=== PATIENT | female | born 1945 | race Caucasian/White ===

== ENCOUNTER 2023-12-08 09:39 | Day surgery (SDC) | payer OTHER, SELFPAY ==
[2023-12-08] VITALS (18 sets, daily range): BP systolic 76–129; BP diastolic 13–74; BMI 19.8
[2023-12-08] MEDS: NSS 145 ML IV (10:18)
[2023-12-08 11:44] LABS: ACT-LR - POC 258 Seconds (116-155)
[2023-12-08 11:52] LABS: ACT-LR - POC 332 Seconds (116-155)
--- NOTE | 2023-12-08 12:36 | ITS.CL.CATH ---
Addendum entered and electronically signed by Domenico Guerrero MD 12/08/23 16:45:
THIS REPORT SHOULD BE DELETED. PLEASE SEE report dictated later on same day
Original Note:
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
Cardiac Catheterization
Procedure Report:
CARDIAC CATHETERIZATION REPORT
Date of Procedure: 12/08/2023
Referring: Ryan Perla MD
Indication: Angina with abnormal stress test
HEMODYNAMIC DATA
AO: 126/68
LV: 126/12
LEFT VENTRICULOGRAPHY: Normal left-ventricular wall motion with EF 58%
CORONARY ANGIOGRAPHY
Dominance: Right
Left Main: Normal
LAD: Mild calcification with mild luminal irregularities throughout the LAD system. The medium sized second diagonal branch has very focal 40% mid stenosis
Circumflex: The circumflex has mild luminal irregularities. OM1 is small. OM 2 is large and occluded at its origin. This vessel fills retrograde via left to left collaterals. The circumflex terminates in the large OM 3.
RCA: Dominant vessel with 80% mid stenosis. The PDA is free of disease. There is a 50% stenosis in the AV groove branch proximal to the first of 2 moderate-sized right posterolateral branches which have mild luminal disease.
Angioplasty: At the conclusion the diagnostic study we proceeded with PCI to treat the 80% mid RCA lesion. A J R4 guide catheter was used. Heparin was used for anticoagulation. Plavix 600 mg was administered at the procedure conclusion. A BMW
wire was passed into the distal RCA. Angioplasty with a 2.0 x 15 trek balloon to 12 valarie was accomplished. A 3.25 x 18 Xience jason point NISHANT was advanced to the target location where was deployed at 15 valarie. We then postdilated the stent with a 3.25
x 15 NC trek balloon to maximum 17 valarie. A guide liner was necessary to get the postdilatation balloon into the stented segment. The final angiographic result was outstanding. There were no procedural complications.
Closure Device: None-the procedure was performed via the right radial artery.
Radiation (mGy): 274
DAP (cm2.Gy): 20.8
Fluoroscopy time: 10.8 minutes
CONCLUSIONS
1: Normal left ventricular function with EF 58%
2: Multivessel CAD as described
3. Successful stenting of 80% mid RCA stenosis using 3.25 x 18 Xience NISHANT with outstanding result
4. Recommend dual antiplatelet therapy for 6-12 months and continued aggressive risk factor modification efforts
Copy to: Ryan Perla MD, Don Avila, DO
Domneico Guerrero MD, FACC, [facility]
--- NOTE | 2023-12-08 13:41 | ITS.CL.CATH ---
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
Cardiac Catheterization
Procedure Report:
CARDIAC CATHETERIZATION AND ANGIOPLASTY REPORT
Date of Procedure: 12/08/2023
Referring: Ryan Perla MD
Indication: Angina with abnormal stress test
HEMODYNAMIC DATA
AO: 126/68
LV: 126/12
LEFT VENTRICULOGRAPHY: Normal left-ventricular wall motion with EF 58%
CORONARY ANGIOGRAPHY
Dominance: Right
Left Main: Normal
LAD: Mild calcification with mild luminal irregularities throughout the LAD system. The medium sized second diagonal branch has very focal 40% mid stenosis
Circumflex: The circumflex has mild luminal irregularities. OM1 is small. OM 2 is large and occluded at its origin. This vessel fills retrograde via left to left collaterals. The circumflex terminates in the large OM 3.
RCA: Dominant vessel with 80% mid stenosis. The PDA is free of disease. There is a 50% stenosis in the AV groove branch proximal to the first of 2 moderate-sized right posterolateral branches which have mild luminal disease.
Angioplasty: At the conclusion the diagnostic study we proceeded with PCI to treat the 80% mid RCA lesion. A J R4 guide catheter was used. Heparin was used for anticoagulation. Plavix 600 mg was administered at the procedure conclusion. A BMW
wire was passed into the distal RCA. Angioplasty with a 2.0 x 15 trek balloon to 12 valarie was accomplished. A 3.25 x 18 Xience jason point NISHANT was advanced to the target location where was deployed at 15 valarie. We then postdilated the stent with a 3.25
x 15 NC trek balloon to maximum 17 valarie. A guide liner was necessary to get the postdilatation balloon into the stented segment. The final angiographic result was outstanding. There were no procedural complications.
Closure Device: None-the procedure was performed via the right radial artery.
Radiation (mGy): 274
DAP (cm2.Gy): 20.8
Fluoroscopy time: 10.8 minutes
CONCLUSIONS
1: Normal left ventricular function with EF 58%
2: Multivessel CAD as described
3. Successful stenting of 80% mid RCA stenosis using 3.25 x 18 Xience NISHANT with outstanding result
4. Recommend dual antiplatelet therapy for 6-12 months and continued aggressive risk factor modification efforts
5. Recommend CTA of thoracic descending aorta to size aneurysm. This was noted on left ventriculography and appears larger than the reported size of 4.7cm in her outpt records
6. There is a gradient of 50mm Hg between the left upper arm cuff pressure and ascending aorta consistent with severe left subclavian artery stenosis/occlusion. Recommend all outpatient blood pressures to be performed via the right upper
extremity. If the left upper extremity is used and 50 mmHg to the systolic for the actual blood pressure
Copy to: Ryan Perla MD, Don Avila,
Domenico Guerrero MD, [facility], [facility]
--- NOTE | 2023-12-08 16:33 | W.PN.UPDATE ---
Update Note
Progress Note Update
Pt seen post RCA PCI. RIght radial cath site without ht/bleeding, OOB to chair. Post EKG NSR, ant lat TWI as before, no acute changes. Pt understands importance of DAPT w/asa, plavix. Cardiac rehab consulted. Followup w/Dr. Perla as scheduled.
Angiogram revealed a known thoracic descending aorta that was reported to be 4.7cm but appears larger on VGram today. 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
Also notable was a 50mmHg gradient between LUE cuff pressure and ascending Ao, c/w severe Left SCA stenosis. Recommending all BP's to be done via RUE. This was discussed with patient and she verbalized understanding.
Home today if cath site/tele remain stable.
== END 2023-12-08 17:35 | disposition home or self-care (01) ==
LOC: CATH 09:39
PROVIDERS: ATTENDING PHYSICIAN Internal Medicine Cardiovascular Disease; FAMILY PHYSICIAN Family Medicine; OTHER PHYSICIAN Internal Medicine Cardiovascular Disease
DX: I25.119 Atherosclerotic heart disease of native coronary artery with unspecified angina pectoris (principal); R94.39 Abnormal result of other cardiovascular function study; I10 Essential (primary) hypertension; I34.0 Nonrheumatic mitral (valve) insufficiency; E78.5 Hyperlipidemia, unspecified; F17.210 Nicotine dependence, cigarettes, uncomplicated; Z79.82 Long term (current) use of aspirin; Z79.02 Long term (current) use of antithrombotics/antiplatelets
CPT/HCPCS: C1725; C1769; 85347; 93005; 93458; C1874; C1894; C9600; Q9967

== ENCOUNTER → 2024-05-27 11:35 | Outpatient (REF) | payer OTHER, MEDICARE, SELFPAY | LOC: RAD 11:35 | PROVIDERS: ATTENDING PHYSICIAN Internal Medicine Cardiovascular Disease; FAMILY PHYSICIAN Family Medicine | DX: I25.10 Atherosclerotic heart disease of native coronary artery without angina pectoris (principal); I10 Essential (primary) hypertension | CPT/HCPCS: 71275; Q9967 ==

== ENCOUNTER → 2024-07-24 07:58 | Outpatient (REF) | payer OTHER, SELFPAY | LOC: PET 07:58 | PROVIDERS: ATTENDING PHYSICIAN Radiology Radiation Oncology | DX: C34.32 Malignant neoplasm of lower lobe, left bronchus or lung (principal) | CPT/HCPCS: 78815; A9552 ==